=== PATIENT | female | born 1960 | race Caucasian/White ===

== ENCOUNTER → 2017-07-10 | Outpatient (CLI) | payer BC ==
[~2017-07-10] MED LIST: ALBU1AER9 INH; ALPR-411 PO; AZEL0.056 NAE; BIOTCAP2 PO; CALC600T9 PO; COEN1CAP46 PO; CYAN100048 PO; DESL1TAB5 PO; ELET40TA PO; LRS10 PO; MULT-506 PO; NRN100 PO; NXM/40 PO; PRM625 PO; PSYL0.524 PO; SUCR5SUS PO; TRAM-10 PO; TRIA1SPR2 NAE
--- NOTE | 2017-07-11 14:36 | MAMMOGRAPHY REPORT ---
BILATERAL DIGITAL SCREENING MAMMOGRAM TOMOSYNTHESIS WITH CAD: 07/10/2017 CLINICAL HISTORY: Routine screening examination. TECHNIQUE: Breast tomosynthesis in addition to standard 2D mammography was performed. Current study was also evaluated with a Computer Aided Detection (CAD) system. COMPARISON: Comparison is made to exams dated: 07/06/2016 mammogram, 07/03/2015 mammogram, 06/13/2014 ma mmogram, 06/07/2013 mammogram, 06/01/2012 mammogram, and 05/26/2011 mammogram - [facility] ter. BREAST COMPOSITION: The tissue of both breasts is heterogeneously dense, which may obscure small mas ses. FINDINGS: The parenchymal pattern is unchanged. No developing mass, architectural distortion or clus ter of suspicious microcalcifications is seen in either breast. IMPRESSION: ACR BI-RADS CATEGORY 2: BENIGN There is no mammographic evidence of malignancy. A 1 year screening mammogram is recommended. The pa tient will receive written notification of the results. Approximately 10% of breast cancers are not detected with mammography. A negative mammographic report should not delay biopsy if a clinically suggestive mass is present. Freya Becerril M.D. ay/:07/10/2017 16:06:08 Software Reliability Engineer: Kadie HALL(Ra)(M), [facility] letter sent: Normal 1/2 BI-RADS Code: ACR BI-RADS Category 2: Benign
== END | disposition home or self-care (01) ==
LOC: C.MAMM 10:49
PROVIDERS: ATTEND Family Medicine
DX: Z12.31 Encounter for screening mammogram for malignant neoplasm of breast (principal)

== ENCOUNTER → 2017-10-06 | Outpatient (CLI) | payer BC | END | disposition home or self-care (01) | LOC: C.LABMFLN 10:08 | PROVIDERS: ATTEND Family Medicine | DX: R19.7 Diarrhea, unspecified (principal) ==

== ENCOUNTER → 2018-02-20 | Outpatient (CLI) | payer BC ==
[~2018-02-20] MED LIST changes: -ALBU1AER9 INH; -ALPR-411 PO; +B-COTAB18; -CALC600T9 PO; -CYAN100048 PO; +FISH1CAP3; +GLUCTAB7; -LRS10 PO; +MAGN250T8; -SUCR5SUS PO; +VITACAP26
== END | disposition home or self-care (01) ==
LOC: C.LABMFLN 08:52
PROVIDERS: ATTEND Family Medicine
DX: Z11.59 Encounter for screening for other viral diseases (principal)

== ENCOUNTER → 2018-07-11 | Outpatient (CLI) | payer BC ==
--- NOTE | 2018-07-12 15:42 | MAMMOGRAPHY REPORT ---
BILATERAL DIGITAL SCREENING MAMMOGRAM TOMOSYNTHESIS WITH CAD: 07/11/2018 CLINICAL HISTORY: Routine screening. Patient has no complaints. TECHNIQUE: The study was acquired using full field digital technology and interpreted from soft copy. Breast tomosynthesis in addition to standard 2D mammography was performed. Current study was also ev aluated with a Computer Aided Detection (CAD) system. COMPARISON: Comparison is made to exams dated: 07/10/2017 mammogram, 07/06/2016 mammogram, 07/03/2015 ma mmogram, 06/13/2014 mammogram, 06/07/2013 mammogram, and 06/01/2012 mammogram - [facility] ter. BREAST COMPOSITION: The tissue of both breasts is heterogeneously dense, which may obscure small mass es. FINDINGS: No suspicious masses, calcifications, or areas of architectural distortion are noted in either breast . There has been no significant interval change compared to prior exams. IMPRESSION: ACR BI-RADS CATEGORY 1: NEGATIVE There is no mammographic evidence of malignancy. A 1 year screening mammogram is recommended.( [id number]) The patient will receive written notification of the results. Some breast cancers are not detected with mammography. A negative mammographic report should not ulises y biopsy if a clinically suggestive mass is present. Antoinette Cabrera M.D. ah/:07/11/2018 16:41:48 Trimming Department Blocker: RT Tiffanie(Ra)(M)(BD), [facility] letter sent: Normal 1/2 BI-RADS Code: ACR BI-RADS Category 1: Negative
== END | disposition home or self-care (01) ==
LOC: C.MAMM 10:57
PROVIDERS: ATTEND Family Medicine
DX: Z12.31 Encounter for screening mammogram for malignant neoplasm of breast (principal)